=== PATIENT | male | born 1990 | race American Indian/Alaskan Native ===

== ENCOUNTER 2019-01-07 09:59 | Emergency (ER) | payer SELFPAY ==
[2019-01-07 10:54] VITALS: BP 111/84
--- NOTE | 2019-01-07 11:05 | XRay Report ---
CHEST 2 VIEWS INDICATION / CLINICAL INFORMATION: Cough, wheezing and cold symptoms since Saturday. COMPARISON: None available. FINDINGS: SUPPORT DEVICES: None. HEART / MEDIASTINUM: The heart size and pulmonary vasculature are normal. LUNGS / PLEURA: No significant pulmonary or pleural abnormality. No pneumothorax. ADDITIONAL FINDINGS: No significant additional findings. IMPRESSION: No acute findings. There is no evidence of pneumonia. Signer Name: Stephen Naik MD Signed: 01/07/2019 11:01 AM Workstation Name: [id number]
--- NOTE | 2019-01-07 11:42 | Emergency Department Report ---
- General Chief Complaint: Upper Respiratory Infection Stated Complaint: WHEEZING/SOB Time Seen by Provider: 01/07/19 11:28 Source: patient Mode of arrival: Ambulatory Limitations: No Limitations - History of Present Illness Initial Comments: 28-year-old male with a past medical history of asthma presents to the hospital requesting clearance to go to work. Patient states the last couple days she's had wheezing and a productive cough without fever. He's been using his home neb treatments with some improvement. He had outpatient physical for his new job and failed his PFT test. As per his paperwork from [employer] exams patient would need further evaluation and treatment with PCP or pastor any repeat PFTs. Pt needs repeat PFT > or equal to 70% Patient states he was told to come to urgent care or in the ER for clearance. He denies active shortness of breath or chest pain. His paperwork states he is suppose to follow up with pulmologist or pcp. - Related Data Previous Rx's Medication Instructions Recorded Last Taken Type ALBUTEROL Inhaler (OR & NICU) 2 puff IH QID PRN #1 inhalation 01/07/19 Unknown Rx [ProAir HFA Inhaler] predniSONE [Deltasone] 40 mg PO QDAY 5 Days tab 01/07/19 Unknown Rx Allergies Allergy/AdvReac Type Severity Reaction Status Date / Time No Known Allergies Allergy Unverified 01/07/19 10:25 ED Review of Systems ROS: Stated complaint: WHEEZING/SOB Other details as noted in HPI Comment: All other systems reviewed and negative ED Past Medical Hx - Past Medical History Previous Medical History?: Yes Hx Asthma: Yes - Surgical History Past Surgical History?: No - Social History Smoking Status: Unknown if ever smoked Substance Use Type: None - Medications Home Medications: Home Medications Medication Instructions Recorded Confirmed Last Taken Type ALBUTEROL Inhaler (OR & NICU) 2 puff IH QID PRN #1 inhalation 01/07/19 Unknown Rx [ProAir HFA Inhaler] predniSONE [Deltasone] 40 mg PO QDAY 5 Days tab 01/07/19 Unknown Rx ED Physical Exam - General Limitations: No Limitations - Other Other exam information: General: No acute distress Head: Atraumatic Eyes: normal appearance ENT: Moist mucous membranes Neck: Normal appearance, no midline tenderness Chest: Clear to auscultation bilaterally CV: Regular rate and rhythm Abdomen: Soft, normal bowel sounds, nontender, nondistended, no rebound or guarding Back: Normal inspection Extremity: Normal inspection infection, full range of motion Neuro: Alert O x 3, no facial asymmetry, speech clear, no gross motor sensory deficit Psych: Appropriate behavior Skin: No rash ED Course Vital Signs 01/07/19 01/07/19 10:52 12:14 Temperature 97.8 F Pulse Rate 90 Pulse Rate [ 102 H Anterior Bilateral Throughout] Respiratory 18 Rate Respiratory 20 Rate [Anterior Bilateral Throughout] Blood Pressure 111/84 O2 Sat by Pulse 96 Oximetry - Reevaluation(s) Reevaluation #1: 01/07/19 12:59 Patient's initial peak flow 400-425 with predicted between 432 and 596. Expiratory expiratory wheezing was noted during peak flow testing. Albuterol 5 mg and Atrovent 1 mg given and we will repeat. 01/07/19 14:48 peak flow 550 after nebs which is within his predictive range. = ED Medical Decision Making - Radiology Data Radiology results: report reviewed cxr: naf - Medical Decision Making Patient has chronic asthma with URI symptoms. No infiltrate on x-ray. Patient requests clearance to return to work however, we are unable to perform pulmonary function tests in the ED. Patient speaks little is at predictive range after receiving nebs. He would need to follow up with a pastor for repeat pulmonary function testing for clearance to go to work. - Differential Diagnosis asthma, pneumonia, bronchitis Critical Care Time: No Critical care attestation.: If time is entered above; I have spent that time in minutes in the direct care of this critically ill patient, excluding procedure time. ED Disposition Clinical Impression: Asthma Disposition: DC-01 TO HOME OR SELFCARE Is pt being admited?: Yes Condition: Stable Instructions: Asthma (ED) Additional Instructions: You were seen in the ER with wheezing due to asthma. Your initial peak flow 400-425 with predicted between 432 and 596. After you were given Albuterol 5 mg and Atrovent 1 mg repeat peak flow was 550 which is within predictive range. Your chest xray was normal. You are going to be treated with steroids and continued albuterol as needed. You will need further workup and evaluation by a pastor or primary care doctor for repeat pulmonary function testing as required by your job. We are able to show that sure peak flow is within acceptable predictive range however, we do not perform pulmonary function tests in the ER. The ER does not provide medical clearance exams. Prescriptions: predniSONE [Deltasone] 40 mg PO QDAY 5 Days tab ALBUTEROL Inhaler (OR & NICU) [ProAir HFA Inhaler] 2 puff IH QID PRN #1 inhalation PRN Reason: Shortness Of Breath Referrals: PRIMARY CARE, [Primary Care Provider] - 3-5 Days LUCY PERALES MD [Staff Physician] - 3-5 Days GREGOR TURCIOS MD [Staff Physician] - 3-5 Days [facility] [Provider Group] - 3-5 Days Time of Disposition: 15:01
[2019-01-07] MEDS ORDERED: ALBUTEROL 2.5 MG/3 ML NEBU IH ONE (12:08)
[2019-01-07] MEDS ORDERED: IPRATROPIUM 0.02% NEBU 2.5 ML IH ONE (12:08)
== END 2019-01-07 15:35 | disposition home or self-care (01) ==
LOC: ED 09:59
DX: J45.909 Unspecified asthma, uncomplicated (principal); Z79.899 Other long term (current) drug therapy
CPT/HCPCS: 71046; 94640; 94644